=== PATIENT | female | born 2000 | race Caucasian/White ===

== ENCOUNTER 2019-06-06 22:27 | Inpatient (IN) | payer OTHER ==
[~2019-06-06] VITALS: Ht 162.6 cm; Wt 100.0 kg
[2019-06-06 23:02] LABS: BASOPHILS ABSOLUTE AUTO 0.02 K/mm3 (0.00-0.23); BASOPHILS PERCENT AUTO 0 % (0-2); EOSINOPHILS ABSOLUTE AUTO 0.01 K/mm3 (0.00-0.68); EOSINOPHILS PERCENT AUTO 0 % (0-6); Hematocrit 37.6 % (33.0-51.0); Hemoglobin 12.1 g/dL (11.5-16.0); IMMATURE GRAN ABSOLUTE AUTO 0.02 K/mm3 (0.00-0.10); IMMATURE GRAN PERCENT AUTO 0 % (0-1); LYMPHOCYTES ABSOLUTE AUTO 3.15 K/mm3 (0.84-5.20); LYMPHOCYTES PERCENT AUTO 33 % (21-46); MONOCYTES ABSOLUTE AUTO 0.67 K/mm3 (0.16-1.47); MONOCYTES PERCENT AUTO 7 % (4-13); Mean Corpuscular HGB 27.8 pg (26.0-34.0); Mean Corpuscular HGB Conc 32.2 g/dL (31.5-36.5); Mean Corpuscular Volume 86 fL (80-100); Mean Platelet Volume 9.9 fL (9.1-12.4); NEUTROPHILS ABSOLUTE AUTO 5.69 K/mm3 (1.96-9.15); NEUTROPHILS PERCENT AUTO 60 % (41-73); Platelet Count 299 K/mm3 (150-400); RDW Coefficient Variation 12.6 % (11.7-14.2); RDW Standard Deviation 40.3 fL (35.1-46.3); Red Blood Cell Count 4.36 M/mm3 (3.80-5.20); White Blood Cell Count 9.56 K/mm3 (4.00-11.30)
[2019-06-06 23:17] LABS: Alanine Aminotransfer (ALT/SGP 23 U/L (12-78); Albumin, Blood 3.3 g/dL (3.4-5.0); Albumin/Globulin Ratio 0.9 (0.8-1.8); Alk Phos 133 U/L (45-116); Anion Gap 8 mmol/L (6-16); Aspartate Aminotrans (AST/SGOT 18 U/L (12-37); Bilirubin, Total 0.4 mg/dL (0.1-1.0); Blood Urea Nitrogen 11 mg/dL (8-21); CO2, Blood 23 mmol/L (21-32); Calcium, Blood 8.3 mg/dL (8.5-10.1); Chloride, Blood 110 mmol/L (98-108); Creatinine, Blood 0.85 mg/dL (0.40-1.00); Ethanol (Alcohol), Blood, Med <3 mg/dL; Globulin, Blood 3.8 g/dL (2.2-4.0); Glomerular Filtration Rate >60 (60-); Glucose, Blood 127 mg/dL (70-99); Potassium, Blood 4.2 mmol/L (3.5-5.5); Salicylate 1.9 mg/dL (2.8-20.0); Sodium, Blood 141 mmol/L (136-145); Total Protein, Blood 7.1 g/dL (6.4-8.2)
[2019-06-06 23:23] LABS: Acetaminophen, Random 147.6 ug/mL (10.0-30.0)
--- NOTE | 2019-06-07 01:45 | NUR ---
ADMIT: PT TRANSFERRED TO ICU 13 VIA GURNEY WITH HEART MONITOR ATTACHED AND RN AT BEDSIDE. PT LETHARGIC, BUT EASILY AROUSED. DENIES PAIN. ACTIVELY VOMITTING WITH BILE GREEN EMESIS OUT. ADMITS TO FEELING SUICIDAL, STATES THE LAST 2 YEARS HAVE BEEN DIFFICULT. MAKES AGREEMENT WITH ME THAT SHE WILL NOT HARM HERSELF WHILE SHE IS HERE. PT TOLD THAT SHE IS A 2MD HOLD AND THAT THE CAMERA IS ON. MARCO ANTONIO BILAT. LS CLEAR T/O WITH BIOX 97% ON RA. HEART SOUNDS S1 AND S1 AUSCULTATED WITH MONITOR SHOWING NSR WITH HR 66. 20G IV L HAND S/L. 18G IV L AC WITH ACETYLCYSTINE BAG #2 @ 131CC/HR. UP WITH ASSIST TO TOILET, VOIDED AND MISSED COLLECTION HAT IN TOILET. AMBULATED WELL, A LITTLE SLOW.
[2019-06-07 03:05] LABS: Albumin, Blood 3.1 g/dL (3.4-5.0); Albumin/Globulin Ratio 0.9 (0.8-1.8); Bilirubin, Direct 0.1 mg/dL (0.0-0.3); Bilirubin, Indirect 0.3 mg/dL (0.1-0.7); Bilirubin, Total 0.4 mg/dL (0.1-1.0); Globulin, Blood 3.6 g/dL (2.2-4.0); Total Protein, Blood 6.7 g/dL (6.4-8.2)
--- NOTE | 2019-06-07 06:21 | NUR ---
SHIFT SUMMARY: PT HAS RESTED MOST OF THE NIGHT, WITH A COUPLE OF EPISODES OF [place] WITH VOMITTING. PT IS AROUSABLE, BUT FALLS BACK ASLEEP QUICKLY. POISON CONTROL CALLED THIS AM FOR FOLLOW UP LAB RESULT. PT CONTINES TO BE ON ACETYLCYSTINE #3 @ 65CC/HR.
--- NOTE | 2019-06-07 07:15 | NUR ---
START OF SHIFT NOTE: RECIEVED REPORT FROM ANNAMARIE GARNER RN, ASSUMED CARE, PATIENT IS SEMI-AWAKE, EASILY AROUSEABLE, OPEN EYES, FOLLOWS COMMANDS, DENIES ANY SUICIDAL IDEATIONS THIS AM, STATES "I AM JUST TIRED", VSS, AFEBRILE, CALL LIGHT IN REACH, WILL CONTINUE TO MONITOR.
[2019-06-07 07:22] LABS: Alanine Aminotransfer (ALT/SGP 30 U/L (12-78); Albumin, Blood 2.9 g/dL (3.4-5.0); Albumin/Globulin Ratio 0.8 (0.8-1.8); Alk Phos 111 U/L (45-116); Anion Gap 10 mmol/L (6-16); Aspartate Aminotrans (AST/SGOT 16 U/L (12-37); Bilirubin, Total 0.5 mg/dL (0.1-1.0); Blood Urea Nitrogen 7 mg/dL (8-21); Bun/Creatinine Ratio 12.6 (12.0-20.0); CO2, Blood 22 mmol/L (21-32); Chloride, Blood 108 mmol/L (98-108); Creatinine, Blood 0.56 mg/dL (0.40-1.00); Globulin, Blood 3.5 g/dL (2.2-4.0); Glomerular Filtration Rate >60 (60-); Glucose, Blood 138 mg/dL (70-99); Potassium, Blood 3.8 mmol/L (3.5-5.5); Sodium, Blood 140 mmol/L (136-145); Total Protein, Blood 6.4 g/dL (6.4-8.2)
[2019-06-07 07:25] LABS: Albumin, Blood 2.8 g/dL (3.4-5.0); Albumin/Globulin Ratio 0.8 (0.8-1.8); Bilirubin, Direct 0.1 mg/dL (0.0-0.3); Bilirubin, Indirect 0.4 mg/dL (0.1-0.7); Bilirubin, Total 0.5 mg/dL (0.1-1.0); Globulin, Blood 3.5 g/dL (2.2-4.0); Total Protein, Blood 6.3 g/dL (6.4-8.2)
--- NOTE | 2019-06-07 07:40 | NUR ---
PATIENT'S FATHER CALLED AND UPDATE WAS PROVIDED TO HIM, WILL VISIT LATER TODAY.
--- NOTE | 2019-06-07 09:38 | NUR ---
PATIENT TOOK AM MEDS WELL, NO PROBLEM SWALLOWING, COOPERATIVE AND AGREEABLE. CALL LIGHT IN REACH, WILL CONTINUE TO MONITOR.
[2019-06-07 10:22] LABS: Source, Urine Clean Catch
--- NOTE | 2019-06-07 10:27 | NUR ---
SPOKE WITH HAMZAH, POISON CONTROL, SHE SUGGESTED THAT Q4 HOUR LABS ARE NOT NECESSARY, AND A LAB DRAW ABOUT 2000 HOURS TONIGHT, ABOUT TWO HOURS BEFORE THIRD ACETYLCYSTEINE BAG IS DONE.
--- NOTE | 2019-06-07 10:31 | NUR ---
CALLED DR. AVINA AND PRESENTED POISON CONTROL SUGGESTIONS ABOUT LAB, DR. AVINA AGREED, WILL ORDER ACETAMINOPHEN AND LIVER PANEL FOR 2000 HOURS TONIGHT AND CANCEL REMAINING Q4 HR LABS.
[2019-06-07 10:32] LABS: Bilirubin, Urine Neg (Neg); Blood, Urine 5+ (Neg); Glucose Qualitative, Urine Neg (Neg); Ketones, Urine 3+ (Neg); Leukocyte Esterase, Urine 1+ (Neg); Nitrite, Urine Neg (Neg); Protein, Urine Neg (Neg); Urobilinogen, Urine NORM (Normal)
--- NOTE | 2019-06-07 10:35 | NUR ---
LAB TECHS IN TO DRAW BLOOD FOR ORDERED LIVER PANEL AND ACETAMINOPHEN LEVEL.
[2019-06-07 10:39] LABS: Appearance, Urine Clear (Clear); Color, Urine Yellow (P-Yellow)
[2019-06-07 10:41] LABS: Bacteria Many /hpf; Red Blood Cells, Urine 0-2 /hpf (0-2); Squamous Epithelial Cells Mod /hpf (Few); White Blood Cells, Urine 0-2 /hpf (0-5)
[2019-06-07 10:56] LABS: U Amphetamine Screen Not Detected; U Barbituate Screen Not Detected; U Benzodiazapine Screen Not Detected; U Buprenorphine Screen Not Detected; U Cannabinoids Screen Not Detected; U Cocaine Screen Not Detected; U Methadone Screen Not Detected; U Methamphetamine Screen Not Detected; U Opiates Screen Not Detected; U Oxycodone Screen Not Detected; U Phencyclidine Screen Not Detected; U Propoxyphene Screen Not Detected
[2019-06-07 11:26] LABS: Albumin, Blood 2.9 g/dL (3.4-5.0); Albumin/Globulin Ratio 0.8 (0.8-1.8); Bilirubin, Direct 0.1 mg/dL (0.0-0.3); Bilirubin, Indirect 0.3 mg/dL (0.1-0.7); Bilirubin, Total 0.4 mg/dL (0.1-1.0); Globulin, Blood 3.6 g/dL (2.2-4.0); Total Protein, Blood 6.5 g/dL (6.4-8.2)
--- NOTE | 2019-06-07 11:36 | NUR ---
PATIENT'S PARENTS IN TO SEE HER, ALL BELONGINGS WERE LEFT OUTSIDE ROOM, PATIENT'S ARE VERY COOPERATIVE, ALSO THERAPIST IN TO SEE PATIENT.
--- NOTE | 2019-06-07 12:12 | NUR ---
PATIENT EATING LUNCH ASSISTED BY MOTHER, PATIENT'S FATHER ALSO AT BEDSIDE, CALL LIGHT IN REACH, WILL CONTINUE TO MONITOR.
--- NOTE | 2019-06-07 15:14 | NUR ---
NUBIA, SPIRITUAL CARE IN TO SEE PATIENT, STILL AWAITING DR. RODRIGUEZ, PATIENT IS COOPERATIVE AND RESTING COMFORTABLY, PATIENT'S PARENTS AT BEDSIDE, CALL LIGHT IN REACH, WILL CONTINUE TO MONITOR.
--- NOTE | 2019-06-07 16:49 | NUR ---
PATIENT IS SLEEPING AT THIS TIME, PARENTS LEFT, WILL RETURN LATER, DR. RODRIGUEZ HAS NOT BEEN IN TO SEE PATIENT YET.
--- NOTE | 2019-06-07 17:55 | NUR ---
SHIFT SUMMARY NOTE: NO ACUTE EVENTS DURING THIS SHIFT, PATIENT WAS AWAKE MOST OF THE SHIFT, ALERT AND ORIENTED, COOPERATIVE AND PLEASANT, SMILING, DID NOT VERBALIZE ANY SUICIDIAL IDEATIONS/THOUGHTS DURING THIS SHIFT, PATIENT'S PARENTS WERE AT BEDSIDE MOST OF THE DAY, DR. RODRIGUEZ HAS NOT BEEN IN OF YET, PATIENT CONTINUES ON 2 MD HOLD AND IS ON CAMERA, MEDICAL STATUS WITH NO TELE AT THIS TIME, EATING AND DRINKING WELL, NO PROBLEM SWALLOWING, POISON CONTROL INVOLVED, THIRD BAG OF ACETYLCYSTEINE INFUSING, MANAGED BY PHARMACY, VSS, DENIES PAIN, AFEBRILE, FOR DETAILS SEE SHIFT ASSESSMENT DOCUMENTATION AND NURSES NOTES, CALL LIGHT IN REACH, WILL CONTINUE TO MONITOR AND GIVE REPORT TO ONCOMING DISC PAD GRINDING MACHINE FEEDER.
--- NOTE | 2019-06-07 18:31 | NUR ---
[facility] intial note: Sharon was awake and appeared alert. Her dad and step-mom were at bedside. All were pleasantly dismissive and quiet. Offered deputy county counsel and prayer upon need/request. Consultant [employer]. Vice President [employer] will remain available.
--- NOTE | 2019-06-07 20:00 | NUR ---
ASSUMED CARE OF PT, REPORT RCV'D FROM SAADIA FLORES. PT ALERT AND ORIENTED, PT'S FATHER AND STEP-MOTHER AT BEDSIDE. PT DENIES SI AT THIS MOMENT BUT STATES SHE WOULD LIKE TO "GET ON SOME MEDICATION FOR DEPRESSION". PER PT'S FATHER, THE ARE LOOKING FOR A NEW PCP THAT CAN POSSIBLY PRESCRIBED ANTIDEPRESSENT AND FOLLOW PT'S CARE. PT'S VSS. SEE FULL SHIFT ASSESSMENT.
[2019-06-07 20:21] LABS: Acetaminophen, Random <2.0 ug/mL (10.0-30.0)
[2019-06-07 20:27] LABS: Alanine Aminotransfer (ALT/SGP 27 U/L (12-78); Albumin, Blood 2.6 g/dL (3.4-5.0); Albumin/Globulin Ratio 0.8 (0.8-1.8); Alk Phos 102 U/L (45-116); Aspartate Aminotrans (AST/SGOT 17 U/L (12-37); Bilirubin, Direct <0.1 mg/dL (0.0-0.3); Bilirubin, Indirect Unable to Calculate mg/dL (0.1-0.7); Bilirubin, Total 0.2 mg/dL (0.1-1.0); Globulin, Blood 3.3 g/dL (2.2-4.0); Total Protein, Blood 5.9 g/dL (6.4-8.2)
--- NOTE | 2019-06-07 21:47 | NUR ---
CALL FROM POISON CONTROL. RECOMMEND D/C NAC. POISON CONTROL SIGNING OFF OF CASE PT IS STABLE.
[2019-06-08 03:32] LABS: Alanine Aminotransfer (ALT/SGP 25 U/L (12-78); Albumin, Blood 2.6 g/dL (3.4-5.0); Albumin/Globulin Ratio 0.8 (0.8-1.8); Alk Phos 104 U/L (45-116); Anion Gap 5 mmol/L (6-16); Aspartate Aminotrans (AST/SGOT 14 U/L (12-37); Bilirubin, Total 0.2 mg/dL (0.1-1.0); Blood Urea Nitrogen 9 mg/dL (8-21); Bun/Creatinine Ratio 11.6 (12.0-20.0); CO2, Blood 25 mmol/L (21-32); Calcium, Blood 7.9 mg/dL (8.5-10.1); Chloride, Blood 112 mmol/L (98-108); Creatinine, Blood 0.78 mg/dL (0.40-1.00); Globulin, Blood 3.2 g/dL (2.2-4.0); Glomerular Filtration Rate >60 (60-); Glucose, Blood 91 mg/dL (70-99); Potassium, Blood 4.1 mmol/L (3.5-5.5); Sodium, Blood 142 mmol/L (136-145); Total Protein, Blood 5.8 g/dL (6.4-8.2)
--- NOTE | 2019-06-08 06:08 | NUR ---
SHIFT SUMMARY NO ACUTE CHANGES OVERNIGHT. PT SLEPT WELL WITH NO COMPLAINTS OR NEEDS. PT AMBULATED TO THE TOILET WITH NO DIFFICULTY. PT IS COOPERATIVE WITH CARE. CAMERA MONITORING ON, DOOR AND CURTAIN OPEN. SOCIAL SERVICE CONSULT PLACED TO ASSIST PT IN ACQUIRING PCP FOR MEDICATION ADMINISTRATION AND MANAGEMENT. VSS. WILL REPORT TO DAYSHIFT NURSE.
--- NOTE | 2019-06-08 08:52 | NUR ---
CARE ASSUMED, ASSESSMENT COMPLETED. PT SAT UP IN BED FOR BREAKFAST, GOOD APPETITE. VSS, PT A&OX4, DENIES SUICIDAL IDEATION AT THIS TIME, IS AGREEABLE TO TELEPSYCH CONSULT AND OPEN TO THE IDEA OF AN ANTIDEPRESSANT MEDICATION [facility]. SL'S DC'D WNL PER PT REQUEST D/T DISCOMFORT. PT CALM AND COOPERATIVE WITH A FLAT, DEPRESSED AFFECT. FAMILY AT BEDSIDE TO VISIT.
--- NOTE | 2019-06-08 10:04 | NUR ---
PT SITTING UP IN BED WITH FAMILY AT BEDSIDE, COMPASS WORKER IN TO SEE PT. PT PLEASANT AND COOPERATIVE, AFFECT REMAINS FLAT. DENIES NEEDS.
--- NOTE | 2019-06-08 11:55 | NUR ---
BEHAVIORAL HEALTH WORKER AT BEDSIDE WITH PT, PT REMAINS CALM AND PLEASANT, COOPERATIVE WITH CARES, AWAITING TELEPSYCH APPOINTMENT.
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
--- NOTE | 2019-06-08 13:08 | NUR ---
PT SPEAKING WITH TELEPSYCH DOCTOR AT THIS TIME.
--- NOTE | 2019-06-08 16:50 | NUR ---
1330: TELEPSYCH CONSULT COMPLETED, PT TEARFUL STATING SHE DOES NOT BELIEVE THE DOCTOR WAS LISTENING TO HER. PT CONTINUES TO DENY SI, STATES SHE WANTS TO GO HOME. PT INFORMED THAT DECISIONS REGARDING HER CARE WILL BE MADE AFTER THE TELEPSYCH DOCTOR SPEAKS WITH HER HOSPITALIST. PT VERBALIZES UNDERSTANDING, DENIES OTHER NEEDS. 1600: PT UP TO SHOWER WITHOUT INCIDENT, THEN BACK TO ROOM, CONTINUES TO AMBULATE IN ROOM FREELY, GAIT STEADY. PT HAS NOT BEEN TEARFUL AGAIN THIS AFTERNOON, HAS BEEN VISITING WITH FATHER AND STEP MOTHER, REMAINS COOPERATIVE BUT WITH A FLAT, DEPRESSED AFFECT. C/O HEADACHE, MEDICATED WITH IBUPROFEN PER ORDERS. 1650: PT AND HER FAMILY NOTIFIED OF TELEPSYCH DOC RECOMMENDATIONS FOR INPATIENT PSYCH TREATMENT, PT BECOMES TEARFUL, STATES SHE DOES NOT WANT TO GO, PT'S FATHER FEELS THAT INPATIENT TREATMENT IS "EXTREME," REQUESTING PSYCH RE-EVALUATION TOMORROW. PRACTICE SPECIALIST AT BEDSIDE, FAMILY'S CONCERNS VOICED, PLAN OF CARE REITERATED BY PRACTICE SPECIALIST. FATHER IN AGREEMENT TO INPATIENT PSYCH AT THIS TIME, AWARE OF 2MD HOLD IMPLICATIONS AND NECESSITY FOR TREATMENT IN ATTEMPT TO PREVENT FUTURE COMPLICATIONS. PT REMAINS TEARFUL, DENIES NEEDS AT THIS TIME, PARENTS REMAIN AT BEDSIDE.
--- NOTE | 2019-06-08 17:54 | NUR ---
PT CALM AND COOPERATIVE AT THIS TIME, SAT UP IN BED AND ATE DINNER, NO CRYING OR AGITATION. PT'S FATHER VERBALIZES TO THIS RN THAT HE BELIEVES THAT PSYCHIATRIC TREATMENT IS PROBABLY IN THE PT'S BEST INTEREST, THIS RN PROVIDES AFFIRMATION OF THAT STATEMENT TO FATHER. PT TEARFUL OFF AND ON T/O SHIFT BUT REMAINED COOPERATIVE WITH CARE, NO COMBATIVE OR SELF HARM BEHAVIORS DEMONSTRATED, PT CONTINUES TO DENY SI, FLAT DEPRESSED AFFECT REMAINS.
--- NOTE | 2019-06-08 19:11 | NUR ---
CARE ASSUMED REPORT RECEIVED, CARE ASSUMED FROM SAADIA GALVEZ. PT ASLEEP IN CHAIR BY WINDOW. BREATHING EVEN AND UNLABORED. CONFIRMED WITH ELIUD AT REMOTE MONITORING THAT PT IS ON CONTINUOUS MONITORING.
--- NOTE | 2019-06-08 19:20 | NUR ---
PT LAYING IN CHAIR ASLEEP AT THIS TIME, NO S/SX DISTRESS NOTED. PT COOPERATIVE T/O SHIFT, DEPRESSED AND TEARFUL, FLAT AFFECT, NO INAPPROPRIATE BEHAVIORS. 1:1 MONITORING ACTIVE T/O SHIFT, SUICIDE PRECAUTIONS REMAIN IN PLACE. REPORT TO ONCOMING NURSE.
--- NOTE | 2019-06-08 22:49 | NUR ---
UPDATE/FAMILY VISIT FAMILY AT BEDSIDE FOR MAJORITY OF EVENING. LEFT APPROXIMATELY AN HOUR AGO AND SINCE THEN PT HAS BEEN RESTING IN BED. PT HAS BEEN CALM, COOPERATIVE AND APPROPRIATE. CALLS APPROPRIATELY FOR NEEDS. VITALS STABLE. SEE SHIFT ASSESSMENT.
--- NOTE | 2019-06-09 06:24 | NUR ---
SUMMARY SINCE FAMILY LEFT LAST NIGHT, PT HAS SLEPT SOUNDLY, AROUSING EASILY FOR REASSESSMENTS AND ADL'S. PT HAS EXPRESSED NEEDS APPROPRIATELY. PT CALM, COOPERATIVE BUT WITHDRAWN. HAS DENIED SI THROUGHOUT THE NIGHT. DID EXPRESS FRUSTRATION WITH PLAN TO BE DISCHARGED TO INPATIENT PSYCH. ALSO EXPLAINED SHE FELT THE PSYCHIATRIC DOCTOR, "PUT A LOT OF WORDS IN MY MOUTH." ENCOURAGEMENT TO EXPRESS FEELINGS AND CONCERNS PROVIDED. SUPPORT PROVIDED FOR FEELINGS OF FRUSTRATION. VITALS STABLE. CONTINUOUS REMOTE MONITORING THROUGHOUT NIGHT. PT UP IN ROOM INDEPEDENTLY FOR ADL'S.
--- NOTE | 2019-06-09 07:02 | NUR ---
REPORT TO SAADIA PRESSLEY TO ASSUME CARE. PT SITTING UP IN BED TALKING WITH FATHER ON NURSE MANDIE. DENIES NEEDS AT THIS TIME.
--- NOTE | 2019-06-09 09:02 | NUR ---
Ongoing SI for patient safety. The pt and her father expressed annoyance that they were getting different information and different limitations from staff memebers. I explained to them the plan: Dr. Nevarez had requensted that Nelsy Beni be contacted to see if she was available for a [id number] with the patient today; however, she is on vacation and Dr. Scott is not available on weekends. I explained that Dr. Nevarez agrees with the telepsyche evaluation for inpatient treatment, and at this point, that is the plan. Explained that I would be calling [facility] to see about availability today, or another facility if that one would not have any way of receiving the patient. I also explained that I would be keeping them updated on any information which I received today, and they expressed appreciation for this. The pt has not been able to have a BM since admission on Tuesday; she has been taking bowel care since morning, and has also had a good appetite. Bowel tones noted to be hypoactive, and the pt denies having passed any gas recently, either. She states that she cannot have a BM without any privacy. After talking with Maya, the charge machine operator, I explained the 2 options available to the pt: Either she use the toilet in the room, with blinds closed, and curtain pulled, or she could use the ICU pt shower/bathroom with someone accompanying her. Neither option was she agreeable to, despite the face that her father encouraged her to consider it, and he seemed to think that it was reasonable.
--- NOTE | 2019-06-09 10:53 | NUR ---
Updated the patient on her acceptance to [facility] as inpatient. Intake form was signed and faxed to the facility. The pt is cheerful, interactive, and makes eye contact as I carry on conversation with her. Kaitlyn is in the room with her; they are playing a game of cards. Room open, tidy, and blinds are open to daylight. No needs or concerns voiced. Kaitlyn Teran asked what personal belongings she can take to the facility, and per Maryellen at [facility], inpatients are allowed clothes only; all personal care items are provided. This was communicated to Parul and Sharon.
--- NOTE | 2019-06-09 12:33 | NUR ---
Sharon and Parul were updated that the estimated time of departure for [facility] will be 3:30 pm today.
--- NOTE | 2019-06-09 15:29 | NUR ---
Sharon and her dad and stepmom were notified that transportation called to say that there is a one hour delay and they will be here at 4 :30 pm.
--- NOTE | 2019-06-09 16:44 | NUR ---
Transport arrived. Melvina White introduced to Christopher Herrera (her dad) and yuki Teran. Pt was escorted out by transport. Call to Maryellen at [facility] to let them know that she is on her way.
== END 2019-06-09 16:40 | DRG 917 ==
LOC: ER 22:27 → ICUW 06-07 00:27
PROVIDERS: Emergency Medicine; Internal Medicine; ADMIT Hospitalist
DX: T39.1X2A Poisoning by 4-Aminophenol derivatives, intentional self-harm, initial encounter (principal); G92 Toxic encephalopathy; F33.9 Major depressive disorder, recurrent, unspecified; T40.2X2A Poisoning by other opioids, intentional self-harm, initial encounter; T45.0X2A Poisoning by antiallergic and antiemetic drugs, intentional self-harm, initial encounter
CPT/HCPCS: 36415; 80053; 80076; 81001; 84443; 84703; 85025; 87077; 87086; 87186; 93005; 93010; 96361; 96365; 96375; 99285-25; G0480; J0132; J2405; J7030; J7060; J7070

== ENCOUNTER 2019-12-17 17:57 | Emergency (ER) | payer OTHER ==
[~2019-12-17] VITALS: Ht 165.1 cm; Wt 108.9 kg
[2019-12-17] MEDS ORDERED: Augmentin 875-1 EACH PO (21:59)
== END 2019-12-17 22:30 | disposition home or self-care (01) ==
LOC: ER 17:57
DX: S51.852A Open bite of left forearm, initial encounter (principal); S51.851A Open bite of right forearm, initial encounter; S61.452A Open bite of left hand, initial encounter; S61.451A Open bite of right hand, initial encounter; F41.9 Anxiety disorder, unspecified; Z87.891 Personal history of nicotine dependence; W54.0XXA Bitten by dog, initial encounter
CPT/HCPCS: 73130; 99283-25; A9270

== ENCOUNTER → 2024-03-31 | Outpatient (CLI) | payer OTHER ==
[~2024-03-31] MED LIST: Augmentin 875-1 EACH PO; CYCL10 PO; ONDA4ODT MM; OSEL75CA PO
== END ==
LOC: LAB SHORT 13:33 → LAB 13:33
DX: N39.0 Urinary tract infection, site not specified (principal)
CPT/HCPCS: 87086